=== PATIENT | female | born 1950 | race Caucasian/White ===

== ENCOUNTER 2016-07-17 19:29 | Emergency (ER) | payer OTHER ==
[2016-07-17 19:45] VITALS: O2SAT 99
--- NOTE | 2016-07-17 20:04 | C.PDOC ---
History Of Present Illness 65 y/o female presents to emergency department with complaints of nausea, vomiting x1, and diarrhea x1, approximately 2 hours after restorationist function. Patient reports eating pastries and drinking coffee prior to onset of symptoms. Denies fever, chills, abdominal pain, urinary symptoms, or other complaints. Time Seen by Provider: 07/17/16 19:58 Chief Complaint (Nursing): GI Problem History Per: Patient History/Exam Limitations: no limitations Onset/Duration Of Symptoms: Hrs Current Symptoms Are (Timing): Still Present Recent travel outside of the [place]: No Past Medical History Reviewed: Historical Data, Nursing Documentation, Vital Signs Vital Signs: Last Vital Signs Temp 97.8 F 07/17/16 20:36 Pulse 85 07/17/16 20:36 Resp 20 07/17/16 20:36 BP 111/72 07/17/16 20:36 Pulse Ox 99 07/17/16 20:36 - Medical History PMH: Hypercholesterolemia Family History: States: Unknown Family Hx - Social History Hx Alcohol Use: No Hx Substance Use: No - Immunization History Hx Tetanus Toxoid Vaccination: No Hx Influenza Vaccination: Yes Hx Pneumococcal Vaccination: Yes Review Of Systems Except As Marked, All Systems Reviewed And Found Negative. Constitutional: Negative for: Fever, Chills Cardiovascular: Negative for: Chest Pain Respiratory: Negative for: Cough, Shortness of Breath Gastrointestinal: Positive for: Nausea, Vomiting, Diarrhea. Negative for: Abdominal Pain Genitourinary: Negative for: Dysuria Skin: Negative for: Rash Neurological: Negative for: Headache, Dizziness Physical Exam - Physical Exam Appears: Non-toxic, No Acute Distress Skin: Normal Color, Warm, Dry Head: Atraumatic, Normacephalic Oral Mucosa: Moist Chest: Symmetrical Cardiovascular: Rhythm Regular Respiratory: Normal Breath Sounds, No Rales, No Rhonchi, No Wheezing Gastrointestinal/Abdominal: Soft, No Tenderness, No Guarding, No Rebound Back: Normal Inspection Extremity: Normal ROM, Capillary Refill (< 2 sec.) Neurological/Psych: Oriented x3, Normal Speech, Normal Cognition ED Course And Treatment O2 Sat by Pulse Oximetry: 99 (RA) Pulse Ox Interpretation: Normal Progress Note: Treated with Pepcid and Zofran. On reassessment, patient is resting comfortably, and is in no acute distress. Patient instructed to follow up with clinic/PMD within 1-2 days. Medical Decision Making Medical Decision Making: food intolerance, cake and coffee @ the restorationist function 2 hrs ago no labs required normal eval. Disposition Doctor Will See Patient In The: Office Counseled Patient/Family Regarding: Studies Performed, Diagnosis - Disposition Referrals: [facility] [Outside] Disposition: HOME/ ROUTINE Disposition Time: 20:03 Condition: GOOD Additional Instructions: drink plenty of fluids/Gatorade Zofran ODT 4 mg (for nausea) one tab every 8 hours as needed for vomiting. BRAT diet for 2 days. Follow-up in our Clinic or with your PMD as needed. Prescriptions: Ondansetron ODT [Zofran ODT] 4 mg PO Q8H PRN #6 odt PRN Reason: Nausea/Vomiting Instructions: Gastroenteritis (ED), Food Poisoning (ED) Forms: Work Excuse - Clinical Impression Clinical Impression: Gastroenteritis - Scribe Statement The provider has reviewed the documentation as recorded by the Yashibcarlos eduardo Vigil All medical record entries made by the Yashibe were at my direction and personally dictated by me. I have reviewed the chart and agree that the record accurately reflects my personal performance of the history, physical exam, medical decision making, and the department course for this patient. I have also personally directed, reviewed, and agree with the discharge instructions and disposition.
[2016-07-17 20:40] VITALS: BP 111/72; PULSE 85; RESP 20; TEMP 97.8
== END 2016-07-17 20:35 | disposition home or self-care (01) ==
LOC: C.ER 19:29
DX: K52.9 Noninfective gastroenteritis and colitis, unspecified (principal)